=== PATIENT | female | born 1965 | race Caucasian/White ===

== ENCOUNTER → 2023-07-26 17:45 | Outpatient (REF) | payer BC, SELFPAY | LOC: WDC 17:45 | PROVIDERS: ATTENDING PHYSICIAN Physician Assistant Medical | DX: Z12.31 Encounter for screening mammogram for malignant neoplasm of breast (principal); Z00.00 Encounter for general adult medical examination without abnormal findings | CPT/HCPCS: 77063; 77067 ==

== ENCOUNTER → 2023-08-17 12:25 | Outpatient (REF) | payer BC, SELFPAY ==
[2023-08-17 13:29] LABS: Urine Albumin Trace (Neg - Trace); Urine Bilirubin Negative (Negative); Urine Character Very Cloudy (Clear); Urine Color Yellow; Urine Glucose Negative (Negative); Urine Ketone Negative (Negative); Urine Leukocyte 1+ (Negative); Urine Nitrite Negative (Negative); Urine Occult Blood 4+ (Negative); Urine Urobilinogen Negative (Neg - 1+)
[2023-08-17 14:36] LABS: Urine Mucus Few
[2023-08-17 14:37] LABS: Urine Amorphous Seen; Urine Urothelial Cell >30 /LPF (FEW)
[2023-08-17 14:38] LABS: Urine Red Blood Cell 60-70 /HPF (0-2)
[2023-08-17 14:39] LABS: Urine Bacteria Many (Negative); Urine White Cell 30-40 /HPF (0-5)
== END ==
LOC: REG 12:25
PROVIDERS: ATTENDING PHYSICIAN Physician Assistant Medical
DX: N39.0 Urinary tract infection, site not specified (principal)
CPT/HCPCS: 81003; 81015; 87086

== ENCOUNTER → 2023-08-25 06:24 | Outpatient (REF) | payer BC, SELFPAY ==
[2023-08-25 07:34] LABS: % Basophils 0.8 % (0-2); % Eosinophils 2.5 % (0-6); % Lymphocytes 40.8 % (20.5-51.1); % Monocytes 7.8 % (1.7-9.3); % Neutrophils 48.1 % (42.2-75.2); Absolute Eosinophils 0.1 10^3/uL (0-0.7); Absolute Monocytes 0.4 10^3/uL (0.1-0.6); Absolute Neutrophils 2.3 10^3/uL (1.4-6.5); Hematocrit 37.3 % (37.0-47.0); Hemoglobin 12.4 g/dL (12.0-16.0); Mean Corp Hgb Conc. 33.2 g/dL (33.0-37.0); Mean Corpuscular Volume 81.1 fL (81.0-99.0); Mean Platelet Volume 8.2 fL (7.4-10.4); Nucleated Red Blood Cells % 0 %; Platelet Count 240 10^3/uL (130-400); Red Cell Dist. Width 13.7 % (11.5-14.5); White Blood Cell Count 4.9 10^3/uL (4.8-10.8)
[2023-08-25 08:01] LABS: ALT (SGPT) 19 U/L (0-35); AST (SGOT) 21 U/L (14-36); Alkaline Phosphatase 61 U/L (38-126); Blood Urea Nitrogen 29 mg/dl (7-17); Calcium 9.2 mg/dl (8.4-10.2); Carbon Dioxide 29 mmol/L (22-30); Chloride 104 mmol/L (98-107); Glucose 126 mg/dl (70-99); HDL Cholesterol 59 mg/dl; LDL Cholesterol, Calculated 105 mg/dl; Potassium 4.4 mmol/L (3.5-5.1); Sodium 137 mmol/L (135-145); Total Bilirubin 0.5 mg/dl (0.2-1.3); Total Cholesterol 174 mg/dl (50-199); Total Protein 6.5 g/dl (6.3-8.2); Triglyceride 53 mg/dl (10-149); Very Low Density Lipoprotein 10 mg/dl (0-30); eGFR > 60.00
[2023-08-25 09:40] LABS: Glycohemoglobin (HgbA1c) 6.1 % (4.0-5.6)
== END ==
LOC: REG 06:24
PROVIDERS: ATTENDING PHYSICIAN Physician Assistant Medical
DX: N39.0 Urinary tract infection, site not specified (principal); R73.09 Other abnormal glucose
CPT/HCPCS: 36415; 80053; 80061; 83036; 84443; 85025

== ENCOUNTER → 2024-02-01 06:29 | Outpatient (REF) | payer BC, SELFPAY ==
[2024-02-01 07:13] LABS: % Basophils 0.6 % (0-2); % Immature Granulocytes 0.2 % (0-0.5); % Lymphocytes 40.3 % (20.5-51.1); % Monocytes 7.1 % (1.7-9.3); % Neutrophils 49.8 % (42.2-75.2); Absolute Eosinophils 0.1 10^3/uL (0-0.7); Absolute Lymphocytes 2.1 10^3/uL (1.2-3.4); Absolute Monocytes 0.4 10^3/uL (0.1-0.6); Absolute Neutrophils 2.5 10^3/uL (1.4-6.5); Hematocrit 39.3 % (37.0-47.0); Hemoglobin 12.7 g/dL (12.0-16.0); Mean Corp Hgb Conc. 32.3 g/dL (33.0-37.0); Mean Corpuscular Volume 80.4 fL (81.0-99.0); Mean Platelet Volume 8.3 fL (7.4-10.4); Nucleated Red Blood Cells % 0 %; Platelet Count 232 10^3/uL (130-400); Red Blood Cell Count 4.89 10^6/uL (4.20-5.40); White Blood Cell Count 5.1 10^3/uL (4.8-10.8)
[2024-02-01 07:53] LABS: ALT (SGPT) 20 U/L (0-35); AST (SGOT) 22 U/L (14-36); Albumin 4.2 g/dl (3.5-5.0); Alkaline Phosphatase 60 U/L (38-126); Blood Urea Nitrogen 19 mg/dl (7-17); Calcium 9.7 mg/dl (8.4-10.2); Carbon Dioxide 23 mmol/L (22-30); Chloride 109 mmol/L (98-107); Glucose 108 mg/dl (70-99); Potassium 4.3 mmol/L (3.5-5.1); Sodium 147 mmol/L (135-145); Total Bilirubin 0.6 mg/dl (0.2-1.3); Total Protein 6.6 g/dl (6.3-8.2); eGFR > 60.00
[2024-02-01 08:20] LABS: TSH 0.05 uIU/ml (0.47-4.68)
[2024-02-01 09:29] LABS: Glycohemoglobin (HgbA1c) 5.9 % (4.0-5.6)
== END ==
LOC: REG 06:29
PROVIDERS: ATTENDING PHYSICIAN Physician Assistant Medical
DX: Z00.00 Encounter for general adult medical examination without abnormal findings (principal); R73.9 Hyperglycemia, unspecified
CPT/HCPCS: 36415; 80053; 83036; 84443; 85025

== ENCOUNTER → 2024-03-15 06:24 | Outpatient (REF) | payer BC, SELFPAY ==
[2024-03-15 08:04] LABS: ALT (SGPT) 23 U/L (0-35); AST (SGOT) 23 U/L (14-36); Albumin 4.3 g/dl (3.5-5.0); Alkaline Phosphatase 49 U/L (38-126); Blood Urea Nitrogen 18 mg/dl (7-17); Calcium 9.3 mg/dl (8.4-10.2); Carbon Dioxide 29 mmol/L (22-30); Chloride 105 mmol/L (98-107); Glucose 117 mg/dl (70-99); HDL Cholesterol 60 mg/dl; LDL Cholesterol, Calculated 118 mg/dl; Potassium 4.6 mmol/L (3.5-5.1); Sodium 142 mmol/L (135-145); Total Bilirubin 0.6 mg/dl (0.2-1.3); Total Cholesterol 190 mg/dl (50-199); Total Protein 6.6 g/dl (6.3-8.2); Triglyceride 61 mg/dl (10-149); Very Low Density Lipoprotein 12 mg/dl (0-30); eGFR > 60.00
[2024-03-15 08:05] LABS: Glucose 117 mg/dl (70-99)
[2024-03-15 08:40] LABS: Free T3 3.45 pg/ml (2.77-5.27); Free T4 1.16 ng/dl (0.78-2.19); Vitamin D, 25-OH*** 44.2 ng/mL (30-80)
[2024-03-15 08:44] LABS: TSH 0.22 uIU/ml (0.47-4.68)
[2024-03-15 09:27] LABS: Glycohemoglobin (HgbA1c) 5.9 % (4.0-5.6)
[2024-03-17 03:23] LABS: Total T3 (Sendout) 100 ng/dL (80-200)
== END ==
LOC: REG 06:24
PROVIDERS: ATTENDING PHYSICIAN Internal Medicine Endocrinology, Diabetes & Metabolism; FAMILY PHYSICIAN Physician Assistant Medical
DX: E03.9 Hypothyroidism, unspecified (principal); E55.9 Vitamin D deficiency, unspecified; R73.03 Prediabetes; E78.5 Hyperlipidemia, unspecified; R53.83 Other fatigue; E78.2 Mixed hyperlipidemia; R89.9 Unspecified abnormal finding in specimens from other organs, systems and tissues
CPT/HCPCS: 36415; 80053; 80061; 82306; 82947; 83036; 84439; 84443; 84480; 84481

== ENCOUNTER → 2024-05-11 06:21 | Outpatient (REF) | payer BC, SELFPAY ==
[2024-05-11 18:38] LABS: Hepatitis B Surface Antigen Positive (Negative)
[2024-05-11 18:43] LABS: AFP Male/Tumor Marker 7.75 ng/ml
[2024-05-11 18:56] LABS: Hepatitis B Core Ab, Total Reactive (Negative); Hepatitis B Surface Antibody Negative
[2024-05-11 19:46] LABS: Hepatitis B Core Ab, IgM Negative (Negative)
[2024-05-12 19:12] LABS: HBV Quant by NAAT IU/mL Not Quantified IU/mL; HBV Quant by NAAT Interp Detected (Not Detected); HBV Quant by NAAT Log IU/mL Not Quantified log IU/mL
== END ==
LOC: REG 06:21
PROVIDERS: ATTENDING PHYSICIAN Internal Medicine Gastroenterology; FAMILY PHYSICIAN Physician Assistant Medical
DX: B18.1 Chronic viral hepatitis B without delta-agent (principal)
CPT/HCPCS: 36415; 82105; 86704; 86705; 86706; 87340; 87517

== ENCOUNTER → 2024-05-23 14:05 | Outpatient (REF) | payer BC, SELFPAY | LOC: RAD 14:05 | PROVIDERS: ATTENDING PHYSICIAN Internal Medicine Gastroenterology; FAMILY PHYSICIAN Physician Assistant Medical | DX: R10.9 Unspecified abdominal pain (principal) | CPT/HCPCS: 74177; Q9967 ==

== ENCOUNTER → 2024-05-29 08:29 | Outpatient (REF) | payer BC, SELFPAY | LOC: RAD 08:29 | PROVIDERS: ATTENDING PHYSICIAN Internal Medicine Gastroenterology; FAMILY PHYSICIAN Physician Assistant Medical | DX: B18.1 Chronic viral hepatitis B without delta-agent (principal) | CPT/HCPCS: 76700 ==

== ENCOUNTER → 2024-06-16 06:20 | Outpatient (REF) | payer BC, SELFPAY ==
[2024-06-16 07:47] LABS: Microalbumin, Random Urine 0.8 mg/dl (0.6-1.7); Microalbumin/creatinine Ratio 3.9 mg/g
[2024-06-16 08:16] LABS: ALT (SGPT) 17 U/L (0-35); AST (SGOT) 18 U/L (14-36); Albumin 4.2 g/dl (3.5-5.0); Alkaline Phosphatase 62 U/L (38-126); Blood Urea Nitrogen 15 mg/dl (7-17); Calcium 8.6 mg/dl (8.4-10.2); Carbon Dioxide 27 mmol/L (22-30); Chloride 105 mmol/L (98-107); Glucose 111 mg/dl (70-99); HDL Cholesterol 44 mg/dl; LDL Cholesterol, Calculated 119 mg/dl; Potassium 4.3 mmol/L (3.5-5.1); Sodium 142 mmol/L (135-145); Total Bilirubin 0.6 mg/dl (0.2-1.3); Total Cholesterol 179 mg/dl (50-199); Total Protein 6.7 g/dl (6.3-8.2); Triglyceride 81 mg/dl (10-149); Very Low Density Lipoprotein 16 mg/dl (0-30); eGFR > 60.00
[2024-06-16 08:18] LABS: Free T3 2.24 pg/ml (2.77-5.27); Free T4 1.15 ng/dl (0.78-2.19); Vitamin D, 25-OH*** 56.4 ng/mL (30-80)
[2024-06-16 08:32] LABS: TSH 4.32 uIU/ml (0.47-4.68)
[2024-06-16 10:05] LABS: Glycohemoglobin (HgbA1c) 6.1 % (4.0-5.6)
[2024-06-18 00:12] LABS: Thyroid Peroxidase Ab (TPO) <0.3 IU/mL (0.0-9.0)
== END ==
LOC: REG 06:20
PROVIDERS: ATTENDING PHYSICIAN Internal Medicine Endocrinology, Diabetes & Metabolism; FAMILY PHYSICIAN Physician Assistant Medical
DX: E55.9 Vitamin D deficiency, unspecified (principal); E03.9 Hypothyroidism, unspecified; R80.9 Proteinuria, unspecified; R73.03 Prediabetes; E78.5 Hyperlipidemia, unspecified; R74.01 Elevation of levels of liver transaminase levels; R53.83 Other fatigue; R79.89 Other specified abnormal findings of blood chemistry
CPT/HCPCS: 36415; 80053; 80061; 82043; 82306; 82570; 83036; 84439; 84443; 84481; 84681; 86376

== ENCOUNTER → 2024-07-26 17:21 | Outpatient (REF) | payer BC, SELFPAY | LOC: WDC 17:21 | PROVIDERS: ATTENDING PHYSICIAN Physician Assistant Medical | DX: Z12.31 Encounter for screening mammogram for malignant neoplasm of breast (principal) | CPT/HCPCS: 77063; 77067 ==

== ENCOUNTER → 2025-01-03 06:33 | Outpatient (REF) | payer BC, SELFPAY ==
[2025-01-03 07:54] LABS: Hematocrit 40.4 % (37.0-47.0); Hemoglobin 12.8 g/dL (12.0-16.0); Mean Corp Hgb Conc. 31.7 g/dL (33.0-37.0); Mean Corpuscular Volume 84.5 fL (81.0-99.0); Nucleated Red Blood Cells % 0 %; Platelet Count 241 10^3/uL (130-400); Red Cell Dist. Width 14.6 % (11.5-14.5)
[2025-01-03 08:19] LABS: ALT (SGPT) 20 U/L (0-35); AST (SGOT) 19 U/L (14-36); Albumin 4.3 g/dl (3.5-5.0); Alkaline Phosphatase 48 U/L (38-126); Blood Urea Nitrogen 22 mg/dl (7-17); Calcium 9.2 mg/dl (8.4-10.2); Carbon Dioxide 27 mmol/L (22-30); Chloride 108 mmol/L (98-107); Glucose 112 mg/dl (70-99); HDL Cholesterol 55 mg/dl; LDL Cholesterol, Calculated 128 mg/dl; Potassium 4.6 mmol/L (3.5-5.1); Sodium 141 mmol/L (135-145); Total Protein 6.7 g/dl (6.3-8.2); Very Low Density Lipoprotein 11 mg/dl (0-30); eGFR > 60.00
[2025-01-03 08:34] LABS: Vitamin D, 25-OH*** 62.6 ng/mL (30-80)
[2025-01-03 08:47] LABS: TSH 5.53 uIU/ml (0.47-4.68)
[2025-01-03 09:26] LABS: Glycohemoglobin (HgbA1c) 5.7 % (4.0-5.6)
== END ==
LOC: REG 06:33
PROVIDERS: ATTENDING PHYSICIAN Physician Assistant Medical
DX: Z00.00 Encounter for general adult medical examination without abnormal findings (principal); R73.01 Impaired fasting glucose; E55.9 Vitamin D deficiency, unspecified
CPT/HCPCS: 36415; 80053; 80061; 82306; 83036; 84443; 85025

== ENCOUNTER → 2025-01-05 06:29 | Outpatient (REF) | payer BC, SELFPAY ==
[2025-01-05 08:38] LABS: ALT (SGPT) 21 U/L (0-35); AST (SGOT) 19 U/L (14-36); Albumin 4.4 g/dl (3.5-5.0); Alkaline Phosphatase 47 U/L (38-126); Blood Urea Nitrogen 17 mg/dl (7-17); Calcium 9.3 mg/dl (8.4-10.2); Carbon Dioxide 26 mmol/L (22-30); Chloride 105 mmol/L (98-107); Glucose 103 mg/dl (70-99); Potassium 4.3 mmol/L (3.5-5.1); Sodium 138 mmol/L (135-145); Total Protein 6.8 g/dl (6.3-8.2); eGFR > 60.00
== END ==
LOC: REG 06:29
PROVIDERS: ATTENDING PHYSICIAN Physician Assistant Medical
DX: E03.9 Hypothyroidism, unspecified (principal); N28.9 Disorder of kidney and ureter, unspecified
CPT/HCPCS: 36415; 80053

== ENCOUNTER → 2025-03-12 06:34 | Outpatient (REF) | payer BC, SELFPAY | LOC: HWRAD 06:34 | PROVIDERS: ATTENDING PHYSICIAN Physician Assistant Medical | DX: Z00.00 Encounter for general adult medical examination without abnormal findings (principal) | CPT/HCPCS: 77080 ==

== ENCOUNTER → 2025-05-14 06:20 | Outpatient (REF) | payer BC, SELFPAY ==
[2025-05-14 19:23] LABS: AFP Male/Tumor Marker 9.91 ng/ml
[2025-05-14 21:32] LABS: Hepatitis B Surface Antigen Positive (Negative)
[2025-05-16 20:05] LABS: HBV Quant by NAAT IU/mL Not Detected; HBV Quant by NAAT Interp Not Detected (Not Detected); HBV Quant by NAAT Log IU/mL Not Detected log IU/mL
== END ==
LOC: REG 06:20
PROVIDERS: ATTENDING PHYSICIAN Internal Medicine Gastroenterology; FAMILY PHYSICIAN Physician Assistant Medical
DX: B18.1 Chronic viral hepatitis B without delta-agent (principal)
CPT/HCPCS: 36415; 82105; 86704; 86705; 86706; 86707; 87340; 87350; 87517